=== PATIENT | male | born 1940 | race Caucasian/White ===

== ENCOUNTER 2018-12-22 08:52 | Inpatient (IN) | payer OTHER ==
[~2018-12-22] VITALS: Ht 182.9 cm; Wt 104.8 kg
[~2018-12-22 08:52] MED LIST: DILANTIN100 MG ORAL; HYDROCHLOROTH12.5 M2 ORAL; NORVASC10 MG ORAL; PRAVACHOL20 MG ORAL; SYNTHROID25 MCG ORAL; TYLENOL650 MG/20. ORAL; VITAMIN C500 M1 ORAL
--- NOTE | 2018-12-22 08:55 | NUR ---
ED Nurse Note: Patient brought in by ambulance RA 26 from [facility], per snf/ems, patient had seizure at 0800 lasted about 5 minutes. Patient is nonverbal at this time, arousable to name, alert and awake. vomited x1. BS 145 md made aware, rectal temp is 98.8 F. Sacral intact/dry.
[2018-12-22] MEDS ORDERED: LORazepam Inj 2mg/ml 1ml IV ONE (09:00)
[2018-12-22 09:08] VITALS: BP 169/79
[2018-12-22] MEDS ORDERED: FISH OIL 500 M1 EAC4 PO (09:09)
[2018-12-22] MEDS ORDERED: KLOR-CON M2020 MEQ ORAL (09:09)
[2018-12-22] MEDS ORDERED: CRANBERRY450 M5 PO (09:09)
[2018-12-22] MEDS ORDERED: MOM30 ML ORAL (09:09)
[2018-12-22] MEDS ORDERED: LIPITOR40 MG ORAL (09:09)
[2018-12-22] MEDS ORDERED: DILANTIN100 MG ORAL (09:09)
--- NOTE | 2018-12-22 09:09 | Emergency Room Report ---
History of Present Illness General Chief Complaint: Seizure Source: Patient, EMS Present Illness HPI Patient presents having a grand mal seizure at the correction facility. History of seizures. He is on Dilantin. He's had a stroke in the past. While paramedics were transporting the patient started vomiting. Patient denies pain at this time. There is no recorded fever. Right-sided weakness from prior stroke. Hypothyroidism. History of upper GI bleed. The review of systems is unobtainable as the patient is unable to answer questions and unintelligible fashion. Allergies: Coded Allergies: No Known Allergies (Unverified , 03/04/15) Patient History Past Medical History: see triage record Social History Narrative [facility] Review[facility] Nursing Documentation: PMH: Agreed; PSxH: Agreed Nursing Documentation-PMH Hx Cardiac Problems: Yes Hx Hypertension: Yes Hx Cancer: No Hx Gastrointestinal Problems: No - hypothyroidism History Of Psychiatric Problem: Yes - Dementia Hx Neurological Problems: Yes Hx Cerebrovascular Accident: Yes Hx Seizures: Yes Hx Weakness: Yes - RIGHT Review of Systems All Other Systems: limited Physical Exam Vital Signs Date Time Temp Pulse Resp B/P (MAP) Pulse Ox O2 Delivery O2 Flow Rate FiO2 12/22/18 08:45 98.1 86 16 163/94 94 Nasal Cannula Sp02 EP Interpretation: reviewed, abnormal - Interpreted as low by me General Appearance: no apparent distress, other - Vomiting, Chronically Ill Eyes: bilateral eye normal inspection, bilateral eye PERRL ENT: moist mucus membranes - No oral trauma Neck: supple Respiratory: lungs clear, normal breath sounds, no respiratory distress Cardiovascular #1: regular rate, rhythm Cardiovascular #2: 2+ radial (L) Gastrointestinal: non tender, soft, decreased bowel sounds Genitourinary: no CVA tenderness Neurologic: responsive, sensory intact, motor weakness - R sided Psychiatric: depressed affect Skin: normal color Medical Decision Making Diagnostic Impression: Primary Impression: Uncontrolled seizures Qualified Codes: R56.9 - Unspecified convulsions Additional Impressions: UTI (urinary tract infection) Qualified Codes: N39.0 - Urinary tract infection, site not specified Subtherapeutic phenytoin level Vomiting Qualified Codes: R11.10 - Vomiting, unspecified ER Course Patient presents with seizure. Differential includes brain bleed, repeat stroke , subtherapeutic anticonvulsant level, electrolyte imbalance, acute myocardial infarction amongst others. Patient will be evaluated with CT the head, chest x- ray, EKG and labs including Dilantin level. The patient was recently vomiting and we need to exclude aspiration. The patient will be treated with IV hydration, Ativan and Zofran. EKG normal sinus rhythm rate [address]-T wave changes. Chest x-ray without infiltrate. 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 Elevated white count. Slightly elevated glucose. Pyuria with positive nitrite. Dilantin level 7.6. Dilantin 500 mg Rocephin is begun. Dilantin infused intravenously. There is no more seizure activity. There is no more vomiting. Patient in no distress at this time however needs continued observation for possible aspiration and for continued seizures. Also antibiotics need to be continued for evidence of significant urinary tract infection. Patient admitted to telemetry under the care of Dr. Solis. Laboratory Tests Test 12/22/18 09:02 12/22/18 09:25 White Blood Count 13.2 K/UL (4.8-10.8) H Red Blood Count 5.18 M/UL (4.70-6.10) Hemoglobin 15.5 G/DL (14.2-18.0) Hematocrit 46.0 % (42.0-52.0) Mean Corpuscular Volume 89 FL (80-99) Mean Corpuscular Hemoglobin 30.0 PG (27.0-31.0) Mean Corpuscular Hemoglobin Concent 33.7 G/DL (32.0-36.0) Red Cell Distribution Width 11.0 % (11.6-14.8) L Platelet Count 344 K/UL (150-450) Mean Platelet Volume 5.7 FL (6.5-10.1) L Neutrophils (%) (Auto) 76.0 % (45.0-75.0) H Lymphocytes (%) (Auto) 17.5 % (20.0-45.0) L Monocytes (%) (Auto) 5.0 % (1.0-10.0) Eosinophils (%) (Auto) 0.9 % (0.0-3.0) Basophils (%) (Auto) 0.6 % (0.0-2.0) Sodium Level 137 MMOL/L (136-145) Potassium Level 3.5 MMOL/L (3.5-5.1) Chloride Level 101 MMOL/L (98-107) Carbon Dioxide Level 20 MMOL/L (21-32) L Anion Gap 16 mmol/L (5-15) H Blood Urea Nitrogen 12 mg/dL (7-18) Creatinine 1.1 MG/DL (0.55-1.30) Estimate Glomerular Filtration Rate mL/min (>60) Glucose Level 162 MG/DL (74-106) H Calcium Level 9.3 MG/DL (8.5-10.1) Total Bilirubin 0.1 MG/DL (0.2-1.0) L Aspartate Amino Transferase (AST) 24 U/L (15-37) Alanine Aminotransferase (ALT) 34 U/L (12-78) Alkaline Phosphatase 155 U/L (46-116) H Total Creatine Kinase 206 U/L (26-308) Troponin I 0.028 ng/mL (0.000-0.056) Total Protein 8.0 G/DL (6.4-8.2) Albumin 3.6 G/DL (3.4-5.0) Globulin 4.4 g/dL Albumin/Globulin Ratio 0.8 (1.0-2.7) L Phenytoin (Dilantin) Level 7.6 ug/mL (10-20) L Urine Color Pale yellow Urine Appearance Slightly cloudy Urine pH 6.5 (4.5-8.0) Urine Specific [place] 1.015 (1.005-1.035) Urine Protein 2+ (NEGATIVE) H Urine Glucose (UA) Negative (NEGATIVE) Urine Ketones Negative (NEGATIVE) Urine Blood 2+ (NEGATIVE) H Urine Nitrite Positive (NEGATIVE) H Urine Bilirubin Negative (NEGATIVE) Urine Urobilinogen Normal MG/DL (0.0-1.0) Urine Leukocyte Esterase 2+ (NEGATIVE) H Urine RBC 2-4 /HPF (0 - 0) H Urine WBC 20-30 /HPF (0 - 0) H Urine Squamous Epithelial Cells None /LPF (NONE/OCC) Urine Bacteria Many /HPF (NONE) H EKG Diagnostic Results Rate: normal Rhythm: NSR ST Segments: no acute changes Rhythm Strip Diag. Results EP Interpretation: yes Rhythm: NSR, no PVC's, no ectopy Chest X-Ray Diagnostic Results Chest X-Ray Diagnostic Results : Chest X-Ray Ordered: Yes # of Views/Limited/Complete: 1 View Indication: Other EP Interpretation: Yes Interpretation: no consolidation, no effusion, no pneumothorax, other - calcified aorta Impression: No acute disease Electronically Signed by: Electronically signed by Aaron Peralta MD CT/MRI/US Diagnostic Results CT/MRI/US Diagnostic Results : Imaging Test Ordered: head Impression old MCA infarct Last Vital Signs Date Time Temp Pulse Resp B/P (MAP) Pulse Ox O2 Delivery O2 Flow Rate FiO2 12/22/18 18:49 98.1 78 13 160/87 98 Room Air 1.0 Status: improved Disposition: ADMITTED INPATIENT Condition: Serious Aaron Peralta MD Dec 22, 2018 09:09
[2018-12-22 09:15] LABS: BASOPHILS % (AUTO) 0.6 % (0.0-2.0); EOSINOPHILS % (AUTO) 0.9 % (0.0-3.0); HEMOGLOBIN 15.5 G/DL (14.2-18.0); LYMPHOCYTES % (AUTO) 17.5 % (20.0-45.0); MEAN CORPUSCULAR VOLUME 89 FL (80-99); PLATELET COUNT 344 K/UL (150-450); RED BLOOD COUNT 5.18 M/UL (4.70-6.10); WHITE BLOOD COUNT 13.2 K/UL (4.8-10.8)
[2018-12-22 09:28] LABS: ANION GAP 16 mmol/L (5-15); BLOOD UREA NITROGEN 12 mg/dL (7-18); CALCIUM 9.3 MG/DL (8.5-10.1); CARBON DIOXIDE 20 MMOL/L (21-32); CHLORIDE 101 MMOL/L (98-107); CREATININE 1.1 MG/DL (0.55-1.30); POTASSIUM 3.5 MMOL/L (3.5-5.1); SODIUM 137 MMOL/L (136-145)
[2018-12-22 09:32] LABS: ALANINE AMINOTRANSFERASE 34 U/L (12-78); ALBUMIN 3.6 G/DL (3.4-5.0); ALBUMIN/GLOBULIN RATIO 0.8 (1.0-2.7); ALKALINE PHOSPHATASE 155 U/L (46-116); ASPARTATE AMINO TRANSFERASE 24 U/L (15-37); BILIRUBIN,TOTAL 0.1 MG/DL (0.2-1.0); CREATINE KINASE 206 U/L (26-308)
[2018-12-22 09:37] LABS: APPEARANCE,URINE SLIGHTLY CLOUDY; BILIRUBIN, URINE NEGATIVE (NEGATIVE); COLOR,URINE PALE YELLOW; GLUCOSE, URINE (UA) NEGATIVE (NEGATIVE); KETONES,URINE NEGATIVE (NEGATIVE); LEUKOCYTE ESTERASE ,URINE 2+ (NEGATIVE); NITRITE,URINE POSITIVE (NEGATIVE); PH,URINE 6.5 (4.5-8.0); PROTEIN,URINE 2+ (NEGATIVE); UROBILINOGEN,URINE NORMAL MG/DL (0.0-1.0)
--- NOTE | 2018-12-22 09:38 | NUR ---
ED Nurse Note: patient went down for CT
--- NOTE | 2018-12-22 09:51 | Diagnostic Imaging Report ---
EXAM: XR Chest, 1 View CLINICAL HISTORY: SYNCOPE TECHNIQUE: Frontal view of the chest. COMPARISON: Chest x-ray 06/09/16 FINDINGS: Lungs: Hypoventilatory lungs. Bibasilar lung atelectasis. Vascularity within normal limits. Pleural space: Unremarkable. No pneumothorax. Heart: Cardiomegaly. Mediastinum: Unremarkable. Bones/joints: Old left clavicle fracture. IMPRESSION: Hypoventilatory lungs. Bibasilar lung atelectasis.
[2018-12-22 09:52] VITALS: BP 151/88
[2018-12-22] MEDS ORDERED: Phenytoin 500 MG in NS 110 ML IVPB STA (10:06)
--- NOTE | 2018-12-22 10:08 | Diagnostic Imaging Report ---
EXAM: CT Head Without Intravenous Contrast CLINICAL HISTORY: SZ TECHNIQUE: Axial computed tomography images of the head/brain without intravenous contrast. CTDI is 70.38 mGy and DLP is 1541 mGy-cm. One or more of the following dose reduction techniques were used: automated exposure control, adjustment of the mA and/or kV according to patient size, use of iterative reconstruction technique. COMPARISON: CT head 12/22/18 FINDINGS: No intracranial hemorrhage, abnormal intra- or extra-axial collections or parenchymal lesions are seen. Old large left MCA territory infarct. Old left cerebellar infarct. There are involutional changes with prominence of the sulci, basal cisterns and ventricles. Scattered white matter hypoattenuations are present, likely from small vessel disease. The henderson-white differentiation is preserved. No evidence of mass effect, midline shift, or edema. The osseous structures are unremarkable. Complete opacification of the left frontal sinus chronic. IMPRESSION: 1. No acute intracranial process. 2. Involutional changes with small vessel disease. 3. Old left MCA territory and left cerebellar infarcts.
[2018-12-22] MEDS ORDERED: Piperacillin/Tazobactam 3.375 GM in NS 110 ML IVPB ONE (10:15)
--- NOTE | 2018-12-22 10:20 | NUR ---
ED Nurse Note: clinicals faxed as requested.
[2018-12-22 11:15] VITALS: BP 158/89
[2018-12-22 13:38] VITALS: BP 141/85
--- NOTE | 2018-12-22 14:30 | NUR ---
ED Nurse Note: notified charge nurse /poultry feed supervisor regarding patient's status Addendum: 12/22/18 at 1537 by LILA Status: needs hospital bed due to pending admission.
--- NOTE | 2018-12-22 14:30 | NUR ---
ED Nurse Note: patient transferred to hospital bed. patient cleaned and kept dry. sacral is intact, dry. patient turned to right side.
[2018-12-22 15:09] VITALS: BP 160/87
--- NOTE | 2018-12-22 18:50 | NUR ---
NURSE NOTES: Received patient from JAYLEEN Hooker. Pt is laying in bed with no distress noted. Side rails are padded. Bed is in lowest position, side rails up X2, and call light is within reach. Will continue to monitor.
--- NOTE | 2018-12-22 18:53 | NUR ---
ED Nurse Note: patient is being transferred to , 220-1 report given to Leatha casanova
[2018-12-22 19:09] VITALS: BP 157/84
--- NOTE | 2018-12-22 19:30 | NUR ---
NURSE NOTES: Pt brought up from ER via gurney prior to start of shift, awake/alert, breathing easily on room air, denies SOB and denies pain at this time. Face symmetric, extremities bilaterally equal but weak. Vital signs stable with SR at 77 on monitor. Condom cath in place, patent and draining clear yellow urine into collection bag at foot of bed. Bed left in low position, side rails padded and up x 3, call light left near pt's hand.
--- NOTE | 2018-12-22 19:34 | NUR ---
HAND-OFF: Report given to JAYLEEN Castano. Plan of care endorsed.
[2018-12-22] MEDS ORDERED: Acetaminophen 650mg/20.3ml ORAL PRN (20:15)
[2018-12-22] MEDS ORDERED: Milk of Magnesia 30ml Ud ORAL PRN (20:15)
[2018-12-22] MEDS: Atorvastatin 20mg tab ORAL SCH (21:48)
[2018-12-22] MEDS: cefTRIAXone 1 GM in D5W 55 ML IVPB SCH (21:49)
[2018-12-22] MEDS: Heparin 5000 units/ml inj SUBQ SCH (21:51)
[2018-12-23 04:00] VITALS: BP 138/71
--- NOTE | 2018-12-23 07:15 | NUR ---
HAND-OFF: Report given to Luis Jimenez RN.
[2018-12-23 08:00] VITALS: BP 163/86
--- NOTE | 2018-12-23 08:00 | NUR ---
NURSE NOTES: Received report from Jane Castano. Pt is sitting up in bed having breakfast. No distress noted. Bed is in lowest position, side rails up X2, and call light is within reach. Will continue to monitor.
[2018-12-23] MEDS: Phenytoin Susp 100mg/4ml NG SCH ×2 (08:52→21:25)
[2018-12-23] MEDS: Ascorbic Acid 500mg tab ORAL SCH (08:53)
[2018-12-23] MEDS: Heparin 5000 units/ml inj SUBQ SCH ×2 (08:54→21:26)
[2018-12-23] MEDS ORDERED: Phenytoin 100mg cap ORAL SCH (09:00)
--- NOTE | 2018-12-23 09:00 | History and Physical Report ---
DATE OF ADMISSION: 12/22/2018 CHIEF COMPLAINT: Seizures and UTI. HISTORY OF PRESENT ILLNESS: The patient is a 78-year-old male with a prior history of seizures or stroke, prior history of GI bleed. He was transferred from a longterm facility with complaints of seizures. On evaluation in the emergency room, the patient was awake and alert. He has prior history of stroke and is a poor historian. His laboratory tests were remarkable for a white count of 13,000. He had evidence of urinary tract infection. He had no active seizures noted. In light of the seizure history and urinary tract infection, he is now admitted for further evaluation and care. PAST MEDICAL HISTORY: As above. PAST SURGICAL HISTORY: None. CURRENT MEDICATIONS: Reconciled and reviewed. ALLERGIES: None. FAMILY HISTORY: None. SOCIAL HISTORY: There is no known history of tobacco, ethanol, or drugs. REVIEW OF SYSTEMS: From the patient is unobtainable as he is confused. PHYSICAL EXAMINATION: VITAL SIGNS: Temperature 98.9 degrees, pulse 77, respirations 16, and blood pressure 157/84. GENERAL: The patient is well developed, in no apparent distress. The patient is verbal, but is somewhat dysarthric with speech. NECK: Supple. HEART: Regular rate and rhythm. LUNGS: Clear. ABDOMEN: Soft, nontender, and nondistended. EXTREMITIES: Without clubbing or cyanosis. NEUROLOGIC: The patient has generalized weakness, but does follow commands. LABORATORY DATA: White count 13 and hemoglobin 15. Sodium 137, potassium 3.5, bicarbonate 20, BUN 12, creatinine 1.1, and glucose 162. Troponin is 0.028. UA showed 20 to 30 wbc's. Dilantin level was 7.6. ASSESSMENT: This is a pleasant male with complaints of seizures likely secondary to urinary tract infection. PROBLEMS LIST: 1. Seizures suspect decreased seizure threshold with the patient's infection. 2. Hypertension. 3. History of stroke. PLAN: 1. Continue IV antibiotics. 2. Follow up cultures. 3. Continue Dilantin. We will titrate as needed. Jasmin Valle JOB#: [id number] CC:
[2018-12-23] MEDS: cefTRIAXone 1 GM in D5W 55 ML IVPB SCH (09:01)
[2018-12-23 12:00] VITALS: BP 149/78
[2018-12-23 16:00] VITALS: BP 135/90
--- NOTE | 2018-12-23 17:00 | NUR ---
CASE MANAGEMENT: REVIEW 78/M BIBA FROM [facility] CC: SEIZURE SI: SEIZURE T 97.0 HR 75 RR 18 BP 163/86 SAT 93% ROOM AIR WBC 13.2 DILANTIN LEVEL 7.6 IS: ZOFRAN IV X1 ATIVAN IV X1 CIPRO IV X1 DILANTIN IV X1 ZOSYN IV X1 INTERQUAL CRITERIA MET: PATIENT ADMITTED TO TELEMETRY UNIT 12/22/2018 DCP: PATIENT IS FROM [facility]
[2018-12-23] MEDS ORDERED: NS 275ml ONE (17:23)
[2018-12-23] MEDS ORDERED: Tubing IV Secondary IV ONE (17:23)
--- NOTE | 2018-12-23 19:21 | NUR ---
HAND-OFF: Report given to JAYLEEN Castano. Plan of care endorsed.
[2018-12-23 20:00] VITALS: BP 161/89
--- NOTE | 2018-12-23 20:00 | NUR ---
NURSE NOTES: Pt dozing lightly, awoke to soft voice, breathing easily on room air, denies SOB and denies pain at this time. Vital signs stable with SR @ 84. IV access right hand flushed with 10 ml NS locked and wrapped. Condom cath in place. Bed left in low position, side rails up x 2 and call light left near pt's hand.
[2018-12-23] MEDS: Atorvastatin 20mg tab ORAL SCH (21:24)
[2018-12-24] VITALS: BP 176/93
[2018-12-24 04:00] VITALS: BP 144/76
--- NOTE | 2018-12-24 07:18 | NUR ---
NURSE NOTES: Received report from JAYLEEN Castano. Pt issitting up in bed with no distress noted. Bed is in lowest position, side rails up X2, and call light is within reach. Will continue to monitor.
[2018-12-24 07:42] LABS: BASOPHILS % (AUTO) 1.4 % (0.0-2.0); EOSINOPHILS % (AUTO) 2.1 % (0.0-3.0); HEMATOCRIT 45.5 % (42.0-52.0); HEMOGLOBIN 15.6 G/DL (14.2-18.0); LYMPHOCYTES % (AUTO) 22.6 % (20.0-45.0); MEAN CORPUSCULAR VOLUME 89 FL (80-99); MONOCYTES % (AUTO) 8.5 % (1.0-10.0); NEUTROPHILS % (AUTO) 65.4 % (45.0-75.0); PLATELET COUNT 320 K/UL (150-450); RED BLOOD COUNT 5.12 M/UL (4.70-6.10); RED CELL DISTRIBUTION WIDTH 10.8 % (11.6-14.8); WHITE BLOOD COUNT 11.9 K/UL (4.8-10.8)
[2018-12-24] MEDS ORDERED: PHENYTOIN100 MG/4 M NG (07:44)
[2018-12-24] MEDS ORDERED: INVANZ1 G1 IM (07:44)
[2018-12-24 08:00] VITALS: BP 128/73
[2018-12-24 08:05] LABS: ALANINE AMINOTRANSFERASE 38 U/L (12-78); ALBUMIN 3.6 G/DL (3.4-5.0); ALBUMIN/GLOBULIN RATIO 0.9 (1.0-2.7); ALKALINE PHOSPHATASE 159 U/L (46-116); ANION GAP 10 mmol/L (5-15); ASPARTATE AMINO TRANSFERASE 31 U/L (15-37); BILIRUBIN,TOTAL 0.3 MG/DL (0.2-1.0); BLOOD UREA NITROGEN 9 mg/dL (7-18); CALCIUM 9.6 MG/DL (8.5-10.1); CARBON DIOXIDE 25 MMOL/L (21-32); CHLORIDE 102 MMOL/L (98-107); CREATININE 0.9 MG/DL (0.55-1.30); POTASSIUM 3.8 MMOL/L (3.5-5.1); SODIUM 137 MMOL/L (136-145)
[2018-12-24] MEDS: Phenytoin Susp 100mg/4ml NG SCH (08:12)
[2018-12-24] MEDS: cefTRIAXone 1 GM in D5W 55 ML IVPB SCH (08:14)
[2018-12-24] MEDS: Ascorbic Acid 500mg tab ORAL SCH (08:14)
[2018-12-24] MEDS: Heparin 5000 units/ml inj SUBQ SCH (08:15)
--- NOTE | 2018-12-24 11:12 | NUR ---
*-* DISCHARGE PLANNING *-* PATIENT [facility] P:[phone] F:[phone]
[2018-12-24 12:00] VITALS: BP 129/89
--- NOTE | 2018-12-24 12:05 | NUR ---
*-* DISCHARGE PLANNED *-* [facility] T:[phone] FOR NURSE TO NURSE REPORT [facility] HAS BEEN ARRANGED FOR [employer] [employer] AT [id number]
--- NOTE | 2018-12-24 12:30 | NUR ---
NURSE NOTES: Called [facility] to give report on pt. Spoke with Bhavin. Per Bhavin, they know the patient. Plan of care endorsed.
--- NOTE | 2018-12-24 14:23 | NUR ---
NURSE NOTES: Patient discharged per MD orders. Heart monitor removed and returned to precision agriculture technician. IV access removed. No redness or swelling noted. Belongings list is in chart. Pt was unable to sign. Pt discharged in stable condition.
--- NOTE | 2018-12-24 20:30 | Discharge Summary ---
DATE OF ADMISSION: 12/22/2018 DATE OF DISCHARGE: 12/24/2018 ADMITTING DIAGNOSES: 1. UTI. 2. Seizure disorder. 3. History of stroke. 4. History of encephalopathy. DISCHARGE DIAGNOSES: 1. UTI. 2. Seizure disorder. 3. History of stroke. 4. History of encephalopathy. HOSPITAL COURSE: The patient is admitted with complaints of seizures. He has had prior history of seizure disorder. He was noted to be slightly subtherapeutic. He also had urinary tract infection. The patient's Dilantin level was increased. He was treated with antibiotics. On discharge, he was stable. He had no further seizures. He will be discharged to a halfway facility. He will continue on antibiotic therapy there for another six days for urinary tract infection. DISCHARGE MEDICATIONS: Please see discharge list for discharge medications. DIET: Regular diet. ACTIVITY: Ad-Gracy. FOLLOWUP: The patient to follow up by his PMD at the halfway facility. Brent Solis M.D. DR: CORRINE JOB#: [id number] CC:
== END 2018-12-24 14:23 | DRG 463 ==
LOC: EDBD 08:52 → EMR 09:55 → 2E 10:15 → UNDOADMIN 10:15 → EDBEDREQ 17:39 → 2E 18:22
DX: N39.0 Urinary tract infection, site not specified (principal); G93.40 Encephalopathy, unspecified; G40.909 Epilepsy, unspecified, not intractable, without status epilepticus; Z86.73 Personal history of transient ischemic attack (TIA), and cerebral infarction without residual deficits
CPT/HCPCS: 36415; 70450; 71045; 80053; 80185; 81003; 82550; 84484; 85025; 87086; 87181; 96365; 96368; 96375; 99285; J1165; J2405; J8499

== ENCOUNTER 2020-10-23 06:04 | Emergency (ER) | payer OTHER ==
[~2020-10-23] VITALS: Ht 185.4 cm; Wt 95.3 kg
[2020-10-23 06:04] VITALS: BP 124/80
[~2020-10-23 06:04] MED LIST changes: +CRANBERRY450 M5 PO; +FISH OIL 500 M1 EAC4 PO; +INVANZ1 G1 IM; +KLOR-CON M2020 MEQ ORAL; +LIPITOR40 MG ORAL; +MOM30 ML ORAL; +PHENYTOIN100 MG/4 M NG
[2020-10-23] MEDS ORDERED: COLACE100 MG ORAL (06:14)
[2020-10-23] MEDS ORDERED: BISACODYL5 MG ORAL (06:14)
[2020-10-23] MEDS ORDERED: FLEET ENEMA133 ML RECTAL (06:14)
[2020-10-23] MEDS ORDERED: VITAMIN C500 M1 ORAL (06:15)
[2020-10-23] MEDS ORDERED: Phenytoin 500 MG in NS 110 ML IVPB ONE (06:15)
[2020-10-23] MEDS ORDERED: HEPARIN SO5000 UNIT2 SUBQ (06:15)
--- NOTE | 2020-10-23 06:31 | Emergency Room Report ---
History of Present Illness General Chief Complaint: Seizure Source: Medical Record, EMS Present Illness HPI Patient is a 80-year-old male multiple medical history nonverbal at baseline who presents to the ER status post seizure. Patient has history of seizure disorder and is on phenytoin. Patient was brought in from his extended care facility by EMS. Per EMS patient had a 5-minute generalized tonic-clonic seizure. Unable to obtain further history at this time. Allergies: Coded Allergies: No Known Allergies (Unverified , 03/04/15) COVID-19 Screening Contact w/high risk pt: No Experienced COVID-19 symptoms?: No COVID-19 Testing performed DELIVERY SPECIALIST: No Patient History Reviewed Nursing Documentation: PMH: Agreed; PSxH: Agreed Nursing Documentation-PMH Hx Cardiac Problems: Yes Hx Hypertension: Yes Hx Asthma: Yes Hx Cancer: No Hx Gastrointestinal Problems: No - dysphagia Hx Neurological Problems: Yes - e-coli, encephalopathy Hx Cerebrovascular Accident: Yes - right side deficit, TIA Hx Dementia: Yes Hx Seizures: Yes Hx Weakness: Yes - RIGHT Review of Systems All Other Systems: limited - non-verbal Physical Exam Vital Signs Date Time Temp Pulse Resp B/P (MAP) Pulse Ox O2 Delivery O2 Flow Rate FiO2 10/23/20 05:59 96.8 100 20 135/83 (100) 94 Room Air Sp02 EP Interpretation: reviewed, normal General Appearance: no apparent distress Head: normocephalic, atraumatic ENT: dry mucus membranes Neck: full range of motion, supple, no meningismus Respiratory: no respiratory distress, no accessory muscle use, other - L lower rhonchi Cardiovascular #1: regular rate, rhythm Gastrointestinal: non tender, soft, no guarding, no rebound Rectal: deferred Musculoskeletal: other - Right upper and lower extremity weakness from prior stroke Psychiatric: other - Unable to assess as patient is nonverbal Skin: no rash, other - Very dry skin Lymphatic: no adenopathy Procedures Critical Care Time Critical Care Time Total critical care time: Approximately 35 minutes. Due to a high probability of clinically significant, life threatening deterioration, the patient required my highest level of preparedness to intervene emergently and I personally spent this critical care time directly and personally managing the patient. This critical care time included obtaining a history; examining the patient; pulse oximetry; ordering and review of studies; arranging urgent treatment with development of a management plan; evaluation of patient's response to treatment; frequent reassessment; and, discussions with other providers.This critical care time was performed to assess and manage the high probability of imminent, life- threatening deterioration that could result in multi-organ failure. It was exclusive of separately billable procedures and treating other patients and teaching time. Please see MDM section and the rest of the note for further information on patient assessment and treatment. Medical Decision Making Diagnostic Impression: Primary Impression: Epileptic seizure, generalized Additional Impressions: Severe sepsis Pneumonia ER Course Patient presents after reported seizure. Patient loaded with Dilantin. Dilantin level here is low. Patient also has elevated white blood cell count with lactic acidosis. Patient pancultured. Patient given vancomycin as well as cefepime. Patient also given 30 cc/kg of IV fluids. Patient's chest x-ray demonstrates left lower lobe infiltrate. Patient be transferred for further treatment and evaluation. Laboratory Tests Test 10/23/20 06:14 10/23/20 06:41 10/23/20 07:28 White Blood Count 15.9 K/UL (4.8-10.8) H Red Blood Count 4.65 M/UL (4.70-6.10) L Hemoglobin 14.4 G/DL (14.2-18.0) Hematocrit 40.0 % (42.0-52.0) L Mean Corpuscular Volume 86 FL (80-99) Mean Corpuscular Hemoglobin 30.9 PG (27.0-31.0) Mean Corpuscular Hemoglobin Concent 35.9 G/DL (32.0-36.0) Red Cell Distribution Width 14.7 % (11.6-14.8) Platelet Count 343 K/UL (150-450) Mean Platelet Volume 6.4 FL (6.5-10.1) L Neutrophils (%) (Auto) 77.7 % (45.0-75.0) H Lymphocytes (%) (Auto) 16.5 % (20.0-45.0) L Monocytes (%) (Auto) 4.9 % (1.0-10.0) Eosinophils (%) (Auto) 0.4 % (0.0-3.0) Basophils (%) (Auto) 0.6 % (0.0-2.0) Prothrombin Time 11.1 SEC (9.30-11.50) Prothrombin Time INR 1.0 (0.9-1.1) Activated Partial Thromboplast Time 23 SEC (23-33) Sodium Level 138 MMOL/L (136-145) Potassium Level 3.8 MMOL/L (3.5-5.1) Chloride Level 102 MMOL/L (98-107) Carbon Dioxide Level 22 MMOL/L (21-32) Anion Gap 14 mmol/L (5-15) Blood Urea Nitrogen 28 mg/dL (7-18) H Creatinine 1.5 MG/DL (0.55-1.30) H Estimated Glomerular Filtration Rate 45.3 mL/min (>60) Glucose Level 156 MG/DL (74-106) H Lactic Acid Level 5.60 mmol/L (0.4-2.0) H 3.50 mmol/L (0.66-2.22) H Calcium Level 9.2 MG/DL (8.5-10.1) Phosphorus Level 2.8 MG/DL (2.5-4.9) Magnesium Level 2.1 MG/DL (1.8-2.4) Total Bilirubin 0.2 MG/DL (0.2-1.0) Aspartate Amino Transferase (AST) 19 U/L (15-37) Alanine Aminotransferase (ALT) 22 U/L (12-78) Alkaline Phosphatase 155 U/L (46-116) H Troponin I 0.009 ng/mL (0.000-0.056) Total Protein 7.9 G/DL (6.4-8.2) Albumin 3.7 G/DL (3.4-5.0) Globulin 4.2 g/dL Albumin/Globulin Ratio 0.9 (1.0-2.7) L Thyroid Stimulating Hormone (TSH) 4.047 uiU/mL (0.358-3.740) Free Thyroxine 1.05 NG/DL (0.76-1.46) Phenytoin (Dilantin) Level 3.7 ug/mL (10-20) L Levetiracetam Level Pending Urine Color Yellow Urine Appearance Clear Urine pH 5 (4.5-8.0) Urine Specific [place] 1.025 (1.005-1.035) Urine Protein 2+ (NEGATIVE) H Urine Glucose (UA) Negative (NEGATIVE) Urine Ketones Negative (NEGATIVE) Urine Blood 2+ (NEGATIVE) H Urine Nitrite Negative (NEGATIVE) Urine Bilirubin Negative (NEGATIVE) Urine Urobilinogen Normal MG/DL (0.0-1.0) Urine Leukocyte Esterase Negative (NEGATIVE) Urine RBC 5-10 /HPF (0 - 0) H Urine WBC 0 /HPF (0 - 0) Urine Squamous Epithelial Cells Occasional /LPF Urine Amorphous Sediment Moderate /LPF (NONE) H Urine Bacteria Moderate /HPF (NONE) H Urine Coarse Granular Casts 0-2 /LPF (NONE) H Microbiology Date/Time Source Procedure Growth Status 10/23/20 06:14 Nasopharynx SARS-CoV-2 RdRp Gene Assay - Final Complete EKG Diagnostic Results Troponin ordered: Yes When was troponin ordered?: Oct 23, 2020 EKG Time: 06:24 EP Interpretation: Marlee Ennis MD Rate: normal - 87 bpm Rhythm: NSR ST Segments: no acute changes ASA given to the pt in ED: No Rhythm Strip Diag. Results Rhythm Strip Time: 06:31 EP Interpretation: yes - Marlee Ennis MD Rate: 85 bpm Rhythm: NSR, no PVC's, no ectopy Chest X-Ray Diagnostic Results Chest X-Ray Diagnostic Results : Chest X-Ray Ordered: Yes # of Views/Limited/Complete: 1 View Indication: Other - seizure EP Interpretation: Yes Interpretation: no effusion, no pneumothorax, other - Left lower lobe infiltrate Impression: Other - Pneumonia Electronically Signed by: Marlee Ennis MD Last Vital Signs Date Time Temp Pulse Resp B/P (MAP) Pulse Ox O2 Delivery O2 Flow Rate FiO2 10/23/20 05:59 96.8 100 20 135/83 (100) 94 Room Air Disposition: ADMITTED INPATIENT Condition: Critical Physician Consult: Dr. Antonio for Transfer Referrals: Bailey Marsh MD (PCP) Additional Instructions: Please note that this report is being documented using [employer] technology. This can lead to erroneous entry secondary to incorrect interpretation by the dictating instrument. Sepsis Event Note Evaluation Current Stage of Sepsis: Severe Sepsis Possible Source: Unknown Focused Exam Allergies: Coded Allergies: No Known Allergies (Unverified , 03/04/15) Date Exam Occurred: Oct 23, 2020 Time Exam Occurred: 07:02 Laboratory Studies Laboratory Tests Test 10/23/20 06:14 10/23/20 06:41 White Blood Count 15.9 K/UL (4.8-10.8) H Red Blood Count 4.65 M/UL (4.70-6.10) L Hemoglobin 14.4 G/DL (14.2-18.0) Hematocrit 40.0 % (42.0-52.0) L Mean Corpuscular Volume 86 FL (80-99) Mean Corpuscular Hemoglobin 30.9 PG (27.0-31.0) Mean Corpuscular Hemoglobin Concent 35.9 G/DL (32.0-36.0) Red Cell Distribution Width 14.7 % (11.6-14.8) Platelet Count 343 K/UL (150-450) Mean Platelet Volume 6.4 FL (6.5-10.1) L Neutrophils (%) (Auto) 77.7 % (45.0-75.0) H Lymphocytes (%) (Auto) 16.5 % (20.0-45.0) L Monocytes (%) (Auto) 4.9 % (1.0-10.0) Eosinophils (%) (Auto) 0.4 % (0.0-3.0) Basophils (%) (Auto) 0.6 % (0.0-2.0) Prothrombin Time 11.1 SEC (9.30-11.50) Prothromb Time International Ratio 1.0 (0.9-1.1) Activated Partial Thromboplast Time 23 SEC (23-33) Sodium Level 138 MMOL/L (136-145) Potassium Level 3.8 MMOL/L (3.5-5.1) Chloride Level 102 MMOL/L (98-107) Carbon Dioxide Level 22 MMOL/L (21-32) Anion Gap 14 mmol/L (5-15) Blood Urea Nitrogen 28 mg/dL (7-18) H Creatinine 1.5 MG/DL (0.55-1.30) H Estimat Glomerular Filtration Rate 45.3 mL/min (>60) Glucose Level 156 MG/DL (74-106) H Lactic Acid Level 5.60 mmol/L (0.4-2.0) H Calcium Level 9.2 MG/DL (8.5-10.1) Phosphorus Level 2.8 MG/DL (2.5-4.9) Magnesium Level 2.1 MG/DL (1.8-2.4) Total Bilirubin 0.2 MG/DL (0.2-1.0) Aspartate Amino Transf (AST/SGOT) 19 U/L (15-37) Alanine Aminotransferase (ALT/SGPT) 22 U/L (12-78) Alkaline Phosphatase 155 U/L (46-116) H Troponin I 0.009 ng/mL (0.000-0.056) Total Protein 7.9 G/DL (6.4-8.2) Albumin 3.7 G/DL (3.4-5.0) Globulin 4.2 g/dL Albumin/Globulin Ratio 0.9 (1.0-2.7) L Thyroid Stimulating Hormone (TSH) Pending Free Thyroxine Pending Phenytoin (Dilantin) Level Pending Levetiracetam (Keppra) Level Pending Urine Color Yellow Urine Appearance Clear Urine pH 5 (4.5-8.0) Urine Specific [place] 1.025 (1.005-1.035) Urine Protein 2+ (NEGATIVE) H Urine Glucose (UA) Negative (NEGATIVE) Urine Ketones Negative (NEGATIVE) Urine Blood 2+ (NEGATIVE) H Urine Nitrite Negative (NEGATIVE) Urine Bilirubin Negative (NEGATIVE) Urine Urobilinogen Normal MG/DL (0.0-1.0) Urine Leukocyte Esterase Negative (NEGATIVE) Urine RBC Pending Urine WBC Pending Urine Squamous Epithelial Cells Pending Urine Bacteria Pending Vital Signs Last 24 Hour Vital Signs Date Time Temp Pulse Resp B/P (MAP) Pulse Ox O2 Delivery O2 Flow Rate FiO2 10/23/20 06:04 76 18 Room Air 10/23/20 06:04 96.8 76 20 124/80 94 Room Air 10/23/20 05:59 96.8 100 20 135/83 (100) 94 Room Air Respiratory Exam: Rhonchi Cardiovascular Exam: RRR Capillary Refill: Less Than 2 Seconds Peripheral Pulse: Marlee Allan M.D. Oct 23, 2020 06:31
[2020-10-23 06:47] LABS: CALCIUM 9.2 MG/DL (8.5-10.1); CREATININE 1.5 MG/DL (0.55-1.30); POTASSIUM 3.8 MMOL/L (3.5-5.1)
[2020-10-23 06:50] LABS: BASOPHILS % (AUTO) 0.6 % (0.0-2.0); EOSINOPHILS % (AUTO) 0.4 % (0.0-3.0); HEMOGLOBIN 14.4 G/DL (14.2-18.0); LYMPHOCYTES % (AUTO) 16.5 % (20.0-45.0); MEAN CORPUSCULAR VOLUME 86 FL (80-99); MONOCYTES % (AUTO) 4.9 % (1.0-10.0); NEUTROPHILS % (AUTO) 77.7 % (45.0-75.0); PLATELET COUNT 343 K/UL (150-450); RED BLOOD COUNT 4.65 M/UL (4.70-6.10); RED CELL DISTRIBUTION WIDTH 14.7 % (11.6-14.8); WHITE BLOOD COUNT 15.9 K/UL (4.8-10.8)
[2020-10-23 06:57] LABS: ALBUMIN 3.7 G/DL (3.4-5.0); ALBUMIN/GLOBULIN RATIO 0.9 (1.0-2.7); BILIRUBIN,TOTAL 0.2 MG/DL (0.2-1.0); PHOSPHORUS 2.8 MG/DL (2.5-4.9)
[2020-10-23 07:00] LABS: APPEARANCE,URINE CLEAR; BILIRUBIN, URINE NEGATIVE (NEGATIVE); COLOR,URINE YELLOW; GLUCOSE, URINE (UA) NEGATIVE (NEGATIVE); KETONES,URINE NEGATIVE (NEGATIVE); LEUKOCYTE ESTERASE ,URINE NEGATIVE (NEGATIVE); NITRITE,URINE NEGATIVE (NEGATIVE); PH,URINE 5 (4.5-8.0); PROTEIN,URINE 2+ (NEGATIVE); UROBILINOGEN,URINE NORMAL MG/DL (0.0-1.0)
[2020-10-23] MEDS ORDERED: Sodium Chloride 2,900 ML IVLG ONE (07:15)
[2020-10-23] MEDS ORDERED: Vancomycin 1 GM in NS 275 ML IVPB ONE (07:15)
[2020-10-23] MEDS ORDERED: Cefepime HCl 2 GM in D5W 55 ML IVPB ONE (07:15)
[2020-10-23 08:25] VITALS: BP 125/87
[2020-10-23 10:30] VITALS: BP 117/76
[2020-10-23 12:26] VITALS: BP 120/70
[2020-10-23 12:48] VITALS: BP 129/75
--- NOTE | 2020-10-23 16:43 | Diagnostic Imaging Report ---
Indication: Shortness of breath Technique: One view of the chest Comparison: 12/22/2018 Findings: Inspiration is suboptimal with crowding of the bronchovascular markings. The aorta is tortuous calcified and ectatic. The heart size is normal. No significant interim change Impression: No acute process
== END 2020-10-23 12:24 | disposition other institution (70) ==
LOC: EDBD 06:04 → EMR 06:24
DX: G40.409 Other generalized epilepsy and epileptic syndromes, not intractable, without status epilepticus (principal); A41.9 Sepsis, unspecified organism; R65.20 Severe sepsis without septic shock; J18.9 Pneumonia, unspecified organism; I11.9 Hypertensive heart disease without heart failure; J45.909 Unspecified asthma, uncomplicated; F03.90 Unspecified dementia, unspecified severity, without behavioral disturbance, psychotic disturbance, mood disturbance, and anxiety; Z86.73 Personal history of transient ischemic attack (TIA), and cerebral infarction without residual deficits
CPT/HCPCS: 36415; 71045; 80053; 80185; 80299; 81003; 83605; 83735; 84100; 84439; 84443; 84484; 85025; 85610; 85730; 87040; 87086; 87181; 93005; 96361; 96365; 96367; J1165; J3370; J7030; J7050; U0002; Z7502; 99291